=== PATIENT | female | born 2000 | race Caucasian/White ===

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

== ENCOUNTER 2019-02-05 17:03 | Emergency (ER) | payer MEDICAID, OTHER ==
[~2019-02-05] VITALS: Ht 165.1 cm; Wt 76.9 kg
[~2019-02-05 17:03] MED LIST: ACET500C5 PO; GUAI-637 PO; PNV11TAB PO; SODI126M NASAL
[2019-02-05 17:18] VITALS: Ht 165.1 cm; Wt 76.9 kg
[2019-02-05] MEDS ORDERED: IBUP-1542 PO (18:05)
--- NOTE | 2019-02-05 18:13 | ERD ---
ER Documentation Chief Complaint Chief Complaint chest wall pain HPI Patient is a 18-year-old female, no past medical history, the ER for concerns of right-sided chest pain x2 days. Pain is localized to her right side of her back and is nonradiating. Patient denies any left-sided pain. Patient denies any left upper extremity pain, nausea, vomiting or diaphoresis. Patient denies any shortness of breath. Patient denies any fevers or chills. Patient denies any cough. Patient states she did have a baby recently and she often does carry the baby. No recent travel. No recent antibiotics. Patient denies any unilateral leg swelling, history of DVT/PE, recent surgeries, estrogen use. ROS All systems reviewed and are negative except as per history of present illness. Medications Home Meds Active Scripts Ibuprofen* (Motrin*) 600 Mg Tab, 600 MG PO Q6, #30 TAB Prov:DAREK JOHNSON PA-C 02/05/19 Guaifenesin* (Robitussin*) 100 Mg/5 Ml Syrup, 200 MG PO Q6H PRN for COUGH, #120 ML Prov:CHIKI MOMIN. HELIUM ARC WELDER 10/04/18 Sodium Chloride (Saline Nasal Mist) 126 Ml Mist, 2 SPRAY NASAL Q2H PRN for NASAL CONGESTION, #1 BOTTLE Prov:CHIKI MOMIN. HELIUM ARC WELDER 10/04/18 Acetaminophen* (Tylophen*) 500 Mg Capsule, 1 CAP PO Q6H PRN for PAIN AND OR ELEVATED TEMP, #20 CAP Prov:CHIKI MOMIN. HELIUM ARC WELDER 10/04/18 Reported Medications [id number] ( 19) 1 Each Tablet, 1 TAB PO DAILY, TAB 09/30/18 Allergies Allergies: Coded Allergies: No Known Allergy (Unverified , 01/16/18) PMhx/Soc Medical and Surgical Hx: pt denies Medical Hx, pt denies Surgical Hx Hx Alcohol Use: No Hx Substance Use: No Hx Tobacco Use: No FmHx Family History: No diabetes Physical Exam Vitals Vital Signs Date Temp Pulse Resp B/P (MAP) Pulse Ox O2 O2 Flow FiO2 Time Delivery Rate 02/05/19 37.1 18:10 02/05/19 98.8 96 19 136/76 98 17:18 (96) Physical Exam GENERAL: Well-developed, well-nourished female. Appears in no acute distress. HEAD: Normocephalic, atraumatic. EYES: Pupils are equally reactive bilaterally. EOMs grossly intact. No conjunctival erythema. ENT: Moist mucous membranes. No uvula deviation. No kissing tonsils. NECK: Supple. No meningismus. Normal range of motion of the neck. LUNG: Clear to auscultation bilaterally. No rhonchi, wheezing, rales or coarse breath sounds. HEART: Regular rate and rhythm. No murmurs, rubs or gallops. Equal pulses in bilateral upper extremities. CHEST WALL: Tender to palpation of the right chest wall. Pain is reproducible. EXTREMITIES: Equal pulses bilaterally. No peripheral clubbing, cyanosis or edema. No unilateral leg swelling. NEUROLOGIC: Alert and oriented. Moving all four extremities without any difficulty. Normal speech. Steady gait. SKIN: Normal color. Warm and dry. No rashes or lesions. Results 24 hrs Current Medications Medications Dose Sig/Kim Start Time Status Last (Trade) Ordered Route PRN Stop Time Admin Dose Reason Admin Ibuprofen 600 mg ONCE ONCE 02/05/19 DC 02/05/19 (Motrin) PO 18:30 18:10 02/05/19 18:31 Procedures/MDM ED COURSE: The patient was stable throughout ED course. I kept the patient and/or family informed of laboratory and diagnostic imaging results throughout the ED course. EKG: Read by Dr. Grove, attending physician. EKG shows normal sinus rhythm with sinus arrhythmia at a rate of [address] elevations or T wave changes were noted. DIAGNOSTIC IMAGING: Read by radiologist. DIAGNOSTIC IMAGING REPORT Patient: MADDY ARCOS : 2000 Age: 18 Sex: F MR #: [id number] DOS: 02/05/19 1803 Ordering MD: DAREK JOHNSON PA-C Location: [facility] Room/Bed: PROCEDURE: XR Chest. CLINICAL INDICATION: Chest pain TECHNIQUE: Portable AP view of the chest was obtained. COMPARISON: None. FINDINGS: The cardiomediastinal silhouette is within normal limits. The lungs are clear. No signs of pleural fluid or pneumothorax are seen. The osseous structures and soft tissues are unremarkable. IMPRESSION: No evidence for active cardiopulmonary disease. RPTAT:AAJJ Physician Terrence Date Time Electronically viewed and signed by Wilian Warner Physician on 02/05/2019 18:31 RF/ CC: DAREK JOHNSON PA-C [id number] PROCEDURES: None. MEDICATIONS GIVEN: Ibuprofen Patient tolerated medication well with no adverse reactions. Patient reported improvement in pain. MEDICAL DECISION MAKING: This is a 18-year-old female presents the ER for concerns of right-sided chest pain x2 days. Patient denied any leg swelling, recent surgeries, travel, exogenous estrogen use. Vital signs were reviewed. Patient was afebrile. Patient was not hypoxic. Cardiac exam was normal. Lung exam was normal. Pain was reproduced with palpation. EKG was within normal limits. Low suspicion for acute coronary syndrome, arrhythmia or pericarditis. CXR was within normal limits. Low suspicion for pneumothorax, pneumonia or pleural effusion. PERC score 0. Low s uspicion for PE. PRESCRIPTIONS: Ibuprofen DISCHARGE: At this time, patient is stable for discharge and outpatient management. I have instructed the patient to follow-up with his/her primary care physician in 1-2 days. If symptoms persist, patient may need to see a specialist for further examinations and testing. I have instructed the patient to promptly return to the ER at any time for any new or worsening symptoms including increased increased pain, fever, nausea, vomiting, numbness, weakness, diaphoresis or LOC. The patient and/or family expressed understanding of and agreement with this plan. All questions were answered. Home care instructions were provided. Disclaimer: Inadvertent spelling and grammatical errors are likely due to EHR/dictation software use and do not reflect on the overall quality of patient care. Also, please note that the electronic time recorded on this note does not necessarily reflect the actual time of the patient encounter. Departure Diagnosis: Primary Impression: Chest wall pain Condition: Fair Patient Instructions: Chest Wall Pain, Costochondritis Referrals: DAYANA CASTILLO (PCP) Additional Instructions: Call your primary care doctor TOMORROW for an appointment during the next 1-2 days.See the doctor sooner or return here if your condition worsens before your appointment time. DAREK JOHNSON PA-C Feb 05, 2019 18:12
[2019-02-05] MEDS ORDERED: IBUPROFEN 600 MG TAB PO ONE (18:30)
[2019-02-05 19:09] VITALS: BP 122/77; PULSE 69; RESP 18
== END 2019-02-05 19:10 | disposition home or self-care (01) ==
LOC: FTE 17:03
DX: R07.89 Other chest pain (principal)
CPT/HCPCS: 71045; 93005; Z7502; Z7610